=== PATIENT | female | born 1995 | race Caucasian/White ===

== ENCOUNTER 2019-02-01 18:23 | Emergency (ER) | payer OTHER ==
[2019-02-01 18:33] VITALS: BP 143/63
[2019-02-01] MEDS ORDERED: cephALEXin 250 MG CAPSULE PO STA (18:44)
--- NOTE | 2019-02-01 18:49 | ED Physician Documentation ---
History of Present Illness - Stated complaint Stated Complaint: SORE THROAT/SINUS PRESSURE - Chief complaint Chief Complaint: General - History obtained from History obtained from: Patient - History of Present Illness Timing: Other (For the last month and a half since having her wisdom teeth out she noticed foul taste in her mouth. It especially is true when she is swallowing or if she uses a nasal spray. She has mild nasal congestion but really no cough or sore throat or significant pain. She denies fevers. She also has left breast pain, she is breast-feeding and had mastitis about a month ago. That pain has been for about 2 days.) Review of Systems Constitutional: denies: Fever, Chills Nose: reports: Rhinorrhea / runny nose, Congestion. denies: Sinus pressure / pain Throat: denies: Sore throat Respiratory: denies: Dyspnea, Cough GI: denies: Abdominal Pain PD PAST MEDICAL HISTORY - Past Medical History Past Medical History: No - Past Surgical History Past Surgical History: Yes - Present Medications Home Medications: Ambulatory Orders Medication Instructions Recorded Confirmed Cephalexin [Keflex] 500 mg PO Q6H #28 capsule 02/01/19 - Allergies Allergies/Adverse Reactions: Allergies Allergy/AdvReac Type Severity Reaction Status Date / Time No Known Drug Allergies Allergy Verified 02/01/19 18:33 - Social History Does the pt smoke?: No Smoking Status: Never smoker PD ED PE NORMAL - Vitals Vital signs reviewed: Yes - General General: Alert and oriented X 3, No acute distress - HEENT HEENT: PERRL, EOMI, Ears normal, Moist mucous membranes, Pharynx benign - Neck Neck: Supple, no meningeal sign, No bony TTP - Derm Derm: Other (Breast exam done with Bailee RIVERA, mild tenderness and warmth at the upper inner portion of the breast without fluctuant abscess or drainage or skin changes.) - Neuro Neuro: Alert and oriented X 3, Normal speech Results - Vitals Vitals: Vital Signs - 24 hr 02/01/19 18:31 Temperature 37 C Heart Rate 73 Respiratory 20 Rate Blood Pressure 143/63 H O2 Saturation 100 Oxygen O2 Source Room air PD MEDICAL DECISION MAKING - ED course ED course: She has mastitis. She also has this odd taste issue, could be adenoidal crypts. She is status post remote tonsillectomy. Also could be a side effect from the wisdom tooth removal or the antibiotics she was on then. Watchful waiting was advised. Departure - Departure Disposition: 01 Home, Self Care Clinical Impression: Mastitis, Taste disorder Condition: Good Record reviewed to determine appropriate education?: Yes Instructions: ED Breast Infec Prescriptions: Cephalexin [Keflex] 500 mg PO Q6H #28 capsule Comments: As discussed if the taste / smell issues don't resolve soon, consider followup with ear/nose/throat specialist. Return if worse or if fevers. Follow-up with your doctor in a week.
== END 2019-02-01 18:57 | disposition home or self-care (01) ==
LOC: ED 18:23
DX: N61.0 Mastitis without abscess (principal); R43.9 Unspecified disturbances of smell and taste; Z98.890 Other specified postprocedural states
CPT/HCPCS: 99283; A9270